=== PATIENT | female | born 1960 | race Hispanic/Latino ===

== ENCOUNTER 2020-12-31 14:16 | Emergency (ER) | payer MEDICAID, SELFPAY ==
[2020-12-31 14:24] VITALS: BP 108/57; PULSE 102; RESP 24; TEMP 37.1; O2SAT 99
--- NOTE | 2020-12-31 14:42 | ED_ITS ---
HPI - Abdominal Pain General Chief Complaint: Abdominal Pain Stated Complaint: flank/abd pain Source: patient and RN notes reviewed Limitations: no limitations History of Present Illness HPI narrative: The marshallese- speaking [place]ander patient, who is a non- smoker/nondrinker, presents with right-sided abdominal pain. Patient indicates through her Greenlandic-speaking family member , a1 day worsening of a weeklong history of epigastric discomfort that is right-sided and somewhat radiates to the back. No fever, actual vomiting/diarrhea/dehydration, frequency/dysuria/hematuria. No prior surgeries/scars, and she reportedly has a history of gallstones. Patient and family advised and agrees to go to higher-level care facility to higher level testing , because for early diagnosis of serious problems [cholecystitis, atypical appendicitis, pyelonephritis etc], testing not available here. Review of Systems Review of Systems: Narrative: General/Constitutional: No weight loss,fever Eyes: N0: Redness,discharge Ears/Nose/Throat: No: Epistaxis,ear discharge Respiratory: Denies: Hemoptysis Gastrointestinal: No Vomiting, Bleeding-rectal PMFSH Comments At time of signature, agree with nursing past medical, surgical, social and family history. There is no relevant family history pertinent to the presenting complaint Exam Narrative: Exam Narrative: General Appearance: Obese, mild distress EYE: PERRLA, Conjunctiva clear Ears: External ear normal Nose: Normal nose Mouth/Throat: Normal appearing, Normal lips Neck: Supple Respiratory: Airway patent, No respiratory distress Cardiovascular: RRR Abdomen: Soft, RUQ tender, No massess, No organomegaly (no rebound/ surgical signs), Musculoskeletal: Full ROM Skin: Warm, Dry Neurological: A&O x3, CN II-X intact Psychiatric: Normal mood, Normal affect Course Vital Signs Vital signs: Vital Signs Temperature 98.8 F 12/31/20 14:24 Pulse Rate 102 H 12/31/20 14:24 Respiratory Rate 24 H 12/31/20 14:24 Blood Pressure 108/57 L 12/31/20 14:24 Pulse Oximetry 99 12/31/20 14:24 Temperature 98.8 F 12/31/20 14:24 Pulse Rate 102 H 12/31/20 14:24 Respiratory Rate 24 H 12/31/20 14:24 Blood Pressure 108/57 L 12/31/20 14:24 Pulse Oximetry 99 12/31/20 14:24 Discharge Plan Discharge Clinical Impression: Right upper quadrant abdominal pain Patient Disposition: Acute Care Hospital Additional Instructions: As discussed go to hospital without fail who have been called Follow-up/Referrals: PHYSICIAN,WRAPPER DIPPER [Primary Care Provider] -
== END 2020-12-31 14:51 | disposition short-term general hospital (02) ==
PROVIDERS: Emergency Provider Emergency Medicine
DX: R10.11 Right upper quadrant pain (principal); I10 Essential (primary) hypertension
CPT/HCPCS: 99212; G0463

== ENCOUNTER 2020-12-31 15:04 | Observation (INO) | payer MEDICAID, SELFPAY ==
--- NOTE | ~2020-12-31 | CT_ITS ---
EXAMINATION: CT abdomen pelvis w con DATE: 12/31/2020 16:29 INDICATION: Right upper quadrant abdominal pain. TECHNIQUE: Computed tomography (CT) of the abdomen and pelvis was performed with 100 mL Omnipaque 350 intravenous contrast. Automated exposure control and iterative reconstruction technique were employe d. The dose-length product was 489.69 mGy-cm. COMPARISON: None. FINDINGS: The visualized portions of the lung bases demonstrate mild atelectasis. No pleural effusion . The heart size is normal. No pericardial effusion. There is a mass in common hepatic duct that exte nds in the intrahepatic biliary ducts causing severe intrahepatic biliary duct dilatation. The mass m easures up to 13.3 x 3.4 cm. There are gallstones in the gallbladder, which is distended. Gallbladder wall thickening is noted. The common bile duct is dilated to 11 mm. The spleen, pancreas, and adrena l glands are normal. There are cysts in the kidneys measuring up to 15 mm on the right. The left aida uterine veins and left ovarian vein are enlarged, consistent with pelvic venous insufficiency. There are no dilated loops of bowel. The appendix is normal. There are no pathologically enlarged lymph nod es. There is no free intraperitoneal fluid. There is mild thoracic spondylosis. IMPRESSION: 1. Large mass distending the common hepatic duct and intrahepatic bile ducts, likely cholangiocarcino ma. 2. Dilated common bile duct. No visible stone or mass in the distal common bile duct. Consider ERCP. 3. Distended gallbladder with cholelithiasis and gallbladder wall thickening. Given the other finding s, these findings are indeterminate for acute cholecystitis due to cystic duct obstruction. Consider hepatobiliary scintigraphy. Reviewed, dictated and finalized at location A. IMPRESSION: 1. Large mass distending the common hepatic duct and intrahepatic bile ducts, l ikely cholangiocarcinoma. 2. Dilated common bile duct. No visible stone or mass in the distal common bile duct. Consider ERCP. 3. Distended gallbladder with cholelithiasis and gallbladder wall thickening. G iven the other findings, these findings are indeterminate for acute cholecystit is due to cystic duct obstruction. Consider hepatobiliary scintigraphy.
--- NOTE | 2020-12-31 15:26 | ED.ABDPAIN ---
HPI - Abdominal Pain General Chief Complaint: Abdominal Pain Stated Complaint: ABD/Back Pain Time Seen by Provider: 12/31/20 15:07 Source: patient, family and RN notes reviewed Mode of arrival: ambulatory Limitations: no limitations History of Present Illness HPI narrative: Patient is 60 years old female does not speak Kittitian, brought to the emergency room by her daughter who speaks broken Kittitian complaining of upper abdominal pain radiating to the right mid back started last night. Patient reported having similar symptoms with a diagnosis of cholelithiasis, was planned to have a surgery back on home but did not. Patient denies any aggravating or relieving factors. The pain is constant. Associated with chills. Patient denies any nausea, vomiting, diarrhea, constipation, urinary symptoms, vaginal bleeding or discharge. Patient denied any history of COVID-19 infection or COVID-19 vaccination. Patient is from [place]. History of hypertension, does not take blood thinner, does not smoke or drink or uses drugs. Patient also denies any history of abdominal surgery. Related Data Allergies Allergy/AdvReac Type Severity Reaction Status Date / Time Penicillins Allergy Unknown Verified 12/31/20 16:08 Review of Systems Review of Systems: Narrative: CONSTITUTIONAL: Denies fever, chills, or sweats. EYES: Denies visual changes, redness, or discharge. ENT: Denies rhinorrhea, congestion, sore throat, or otalgia. CARDIOVASCULAR: Denies chest pain, palpitations, or edema. RESPIRATORY: Denies cough or dyspnea. GASTROINTESTINAL: Denies abdominal pain, nausea, vomiting, or diarrhea. GENITOURINARY: Denies dysuria or hematuria. SKIN: Denies rash or itching. MUSCULOSKELETAL: Denies back pain, joint pain, or myalgia. NEUROLOGIC: Denies headache, numbness, or weakness. PSYCHIATRIC: Denies anxiety or depression. Exam Narrative: Exam Narrative: General appearance: Well-developed, well-nourished Skin: Normal color Head: Normocephalic, nontraumatic Eyes: Clear conjunctiva ENT: Oropharynx normal, ears normal, nose normal Neck: Supple, nontender Chest and respiratory: Airway patent, no respiratory distress, no accessory muscle use Heart: Regular rate/rhythm Abdomen: Diffuse tenderness upper abdomen mainly right upper quadrant and epigastric area, quiet bowel sounds Vascular: Normal peripheral pulses, normal capillary refill. Musculoskeletal: Normal range of motion, nontender back Neurologic: Alert and oriented ?3, [employer] ) is normal as tested, no gross motor deficit Course Course Emergency Course: Stable Reevaluation(s) Reevaluation #1: Patient got accepted to be transferred to [facility], the bed will be available tomorrow. Patient will be admitted to our hospital for observation. Discussed with Date: 12/31/20 Time: 21:22 Consultations Consultation #1: Bello jacobs, Consult Dr. Cantor in a.m. for ERCP Date: 12/31/20 Time: 17:41 Consultation #2: Dr. Reed [facility] Date: 12/31/20 Time: 17:46 Consultation #3: DR CARNEY/net developer programmer at [facility] who accepted patient to be transferred to hospitalist Date: 12/31/20 Time: 18:46 Additional Consultation(s): DR VIVAS/hospitalist at [facility] who accepted patient transfer to medical floor Vital Signs Vital signs: Vital Signs Temperature 36.8 C 12/31/20 15:31 Pulse Rate 82 12/31/20 15:31 Respiratory Rate 20 12/31/20 15:31 Pulse Oximetry 98 12/31/20 15:31 Temperature 36.8 C 12/31/20 15:31 Pulse Rate 86 12/31/20 19:22 Respiratory Rate 14 12/31/20 19:22 Blood Pressure 109/69 12/31/20 19:22 Pulse Oximetry 93
[2020-12-31 15:31] VITALS: PULSE 82; RESP 20; TEMP 36.8; O2SAT 98
[2020-12-31 15:49] LABS: Hematocrit 39.5 % (37.0-47.0); Hemoglobin 12.9 g/dL (12.0-15.0); Mean Corpuscular HGB Conc 32.7 g/dl (32-36); Mean Corpuscular Volume 82.6 fl (80-100); Mean Platelet Volume 9.9 fl (7.4-10.4); Platelet Count Result 336 k/mm3 (150-375); Red Blood Count 4.78 M/mm3 (4.2-5.4); Red Cell Distribution Width 13.1 % (11.5-14.5); White Blood Count 14.9 K/mm3 (4.5-10.0)
[2020-12-31] MEDS: Please add drug allergy info to patient profile. 1 EACH XX (16:09)
[2020-12-31] MEDS: ONDANSETRON INJ 4 MG/2 ML VIAL IV PUSH (16:10)
[2020-12-31] MEDS: SODIUM CHLORIDE 0.9% IV 1,000 ML 999 ML IV CONT (16:11)
[2020-12-31] MEDS: HYDROmorphone HCL INJ (*CRX) 1 MG/ML SYR 0.5 MG IV PUSH (16:11)
[2020-12-31 16:19] LABS: Atypical Lymphocytes Present; Band Neutrophils Percent 16 % (0-6); Lymphocytes Absolute Manual 1.19 K/mm3 (1.1-4.5); Monocytes Absolute Manual 1.19 K/mm3 (0.1-0.90); Monocytes Percent Manual 8 % (3-9); Neutrophils Absolute Manual 12.51 K/mm3 (1.7-7.2); Neutrophils Percent Manual 68 % (46-73); Platelet Estimate Adequate (Adequate); Total Cells Counted 100
[2020-12-31 16:21] LABS: Add Urine Microscopic? YES; Appearance Urine Cloudy (Clear); Bacteria Urine Trace /hpf; Bilirubin Urine 1+ (Negative); Blood Urine Negative (Negative); Color Urine Amber (Yellow); Glucose Urine UA Negative (Negative); Ketones Urine Negative (Negative); Leukocyte Esterase Ur Negative LEU/UL (Negative); Nitrate Urine Negative (Negative); Protein Urine 1+ mg/dL (Negative); RBC Urine 0-2 /hpf (0-2); Specific Grav Ur 1.014 (1.001-1.035); Squamous Epithelial Cell Urine Rare /hpf (Few); WBC Urine 0-3 /hpf
[2020-12-31 16:23] LABS: Alanine Aminotransferase 162 U/L (4-35); Albumin Level 4.3 g/dL (3.5-5.1); Alkaline Phosphatase 476 U/L (38-126); Anion Gap 8 mmol/L (8-16); Aspartate Amino Transferase 164 U/L (14-36); Bilirubin,Total 4.5 mg/dL (0.2-1.3); Blood Urea Nitrogen 19 mg/dL (7-17); Calcium 9.9 mg/dL (8.4-10.2); Carbon Dioxide 28 mmol/L (22-30); Chloride 101 mmol/L (98-107); Estimated CRCL calculation 58 ml/min; Estimated Glomerular Filt Rate > 60; Glucose 172 mg/dL (65-105); Sodium 137 mmol/L (137-145)
[2020-12-31 16:51] LABS: Lipase 19429 U/L (23-300)
[2020-12-31 19:22] VITALS: BP 109/69; PULSE 86; RESP 14; O2SAT 93
[2020-12-31 20:20] LABS: Estimated CRCL calculation 73 ml/min; Estimated Glomerular Filt Rate > 60
[2020-12-31 21:48] VITALS: BP 116/59; PULSE 94; RESP 14; O2SAT 94
--- NOTE | 2020-12-31 22:45 | PM.IMHP ---
H&P: HPI History of Present Illness Date/Time: 12/31/20 22:45 Chief Complaint: abdominal pain Narrative: Patient is 60 years old female does not speak Uzbek, brought to the emergency room by family who speaks broken Uzbek. Lucio was taken via phone call to her daughter while evluating. She states she has been haaivn on and off pain in her abdomen for years but has gotten worse over the past few weeks, got really worse last nigth with upper abdominal pain radiating to her midback. thre was asociated nausea and an episode of vomiting but no fever. she does admit to having chills off and on. she is having no constipation and diarrhea. Dated back in july 2019, she was told she has gall stones and suggested surgery however she did nto follow back. evaluation in the ED showed distended gallbladder with large mass distending the common hepatic duct and intrahepatic bile ducts ,suggetive of cholangiocarcinoma. she is planned to be transfered to higher center and has been accepted there however there is no beds available and hence she is admitted until bed availability. She rpeorts that her pain is better since she came to the hosptial. Review of Systems Review of Systems: Narrative: - CONSTITUTIONAL: Denies weight loss, fever and chills. - HEENT: Denies changes in vision and hearing - RESPIRATORY: Denies SOB and cough. - CV: Denies palpitations and CP. - GI: reports abdominal pain, nausea, vomiting and no diarrhea. - : Denies dysuria and urinary frequency. - MSK: Denies myalgia and joint pain. - SKIN: Denies rash and pruritus. - NEUROLOGICAL: Denies headache and syncope. - PSYCHIATRIC: Denies recent changes in mood. Denies anxiety and depression. All systems reviewed & are unremarkable except as noted in HPI and below Constitutional: Constitutional: Reports fatigue and Reports weakness Endocrine: Endocrine: Reports fatigue Meds Home Medications and Allergies Allergies Allergy/AdvReac Type Severity Reaction Status Date / Time Penicillins Allergy Unknown Verified 12/31/20 16:08 Vital Signs Vital Signs - 24 hr 12/31/20 15:31 12/31/20 19:22 12/31/20 21:48 Temperature 98.3 F Pulse Rate 82 86 94 Respiratory Rate 20 14 14 Blood Pressure 109/69 116/59 L Pulse Oximetry 98 93 94 Exam Narrative: Exam Narrative: GENERAL: The patient is well developed, not in acute distress HEENT: Nonicteric sclerae, PERRLA, EOMI. Oropharynx clear. Moist mucous membranes. Conjunctivae appear well perfused. CHEST: Chest wall is nontender. HEART: Regular rate and rhythm without murmur, rubs, or gallops LUNGS: Clear to auscultation bilaterally. no respiratory distress ABDOMEN: Soft, positive bowel sounds, tender right upper quadrant, no guarding or rigidity, no organomegaly. SKIN: No rash, no excessive bruising, petechiae, or purpura. NEUROLOGIC: Cranial nerves II-XII intact, alert and oriented x 3, no gross motor deficits EXTREMITIES: no edema, cyanosis or clubbing H&P: Results Labs Labs: Short CBC 12/31/20 Range/Units 15:42 WBC 14.9 H (4.5-10.0) K/mm3 Hgb 12.9 (12.0-15.0) g/dL Hct 39.5 (37.0-47.0) % Plt Count 336 (150-375) k/mm3 BMP 12/31/20 12/31/20 16:06 16:23 Sodium 137 Potassium 4.0 Chloride 101 Carbon Dioxide 28 BUN 19 H Creatinine 0.90 0.70 Glucose 172 H Calcium 9.9 Liver Function 12/31/20 Range/Units 16:06 Total Bilirubin 4.5 H (0.2-1.3) mg/dL AST 164 H (14-36) U/L ALT 162 H (4-35) U/L Alkaline Phosphatase 476 H (38-126) U/L Albumin 4.3 (3.5-5.1) g/dL Urine 12/31/20 Range/Units 16:06 Urine Color Annmarie (Yellow) Urine Appearance Cloudy H (Clear) Urine pH 6.0 (5.0-9.0) Ur Specific [place] 1.014 (1.001-1.035) Urine Protein 1+ H (Negative) mg/dL Urine Glucose (UA) Negative (Negative) mg/dL Assessment and Plan Assessment and plan (1) Right upper quadrant abdominal pain: Code(s
--- NOTE | 2020-12-31 22:55 | ADMGEN ---
This patient, Laly Walton, was admitted to 2 Medical Room 241-01. Patient/family oriented to hospital policies and general routines including ID bracelet, bed and alarms, visiting hours, pain management, procedures, bathroom and other care routines, personal items, smoking policy, room service/diet, and visiting hours. Information on how to activate the Rapid Response Team has been discussed. Patient/Family are encouraged to report perceived risks to care and to ask questions if they do not understand what they are told or what they should do.
[2020-12-31 23:16] VITALS: BP 113/58; PULSE 98; RESP 16; TEMP 36.1; O2SAT 97; BMI 39.2
[2020-12-31] MEDS: DEXTROSE 5%/0.9% SOD CHL 1,000 ML 125 ML IV CONT (23:21)
--- NOTE | 2020-12-31 23:53 | PC.NURSE ---
Patient stated she doesn't know what medications shes taking. She says its a blood pressure medication. I called daughter Kinga Argueta she says she doesn't know the name of the medication and thats its from [facility] and she has no doctor here.
[2021-01-01] MEDS: HYDROmorphone HCL INJ (*CRX) 1 MG/ML SYR 0.5 MG IV PUSH (01:26)
[2021-01-01 05:45] LABS: Basophils Absolute Auto 0.1 K/mm3 (0.0-0.1); Basophils Percent Auto 0.5 % (0.2-1.2); Eosinophils Percent Auto 0.2 % (0-4.4); Hematocrit 33.5 % (37.0-47.0); Hemoglobin 10.7 g/dL (12.0-15.0); Immature Granulocyte Absolute 0.04 K/mm3 (0.00-0.031); Immature Granulocyte Percent A 0.4 % (0-0.5); Lymphocytes Absolute Auto 1.21 K/mm3 (0.9-3.2); Lymphocytes Percent Auto 12.2 % (18.3-44.2); Mean Corpuscular HGB Conc 31.9 g/dl (32-36); Mean Corpuscular Hemoglobin 27.2 pg (26-34); Mean Platelet Volume 10.7 fl (7.4-10.4); Monocytes Absolute Auto 0.5 K/mm3 (0.1-0.6); Monocytes Percent Auto 4.5 % (2.6-8.5); Neutrophils Absolute Auto 8.2 K/mm3 (1.3-6.7); Neutrophils Percent Auto 82.2 % (45.5-73.1); Platelet Count Result 280 k/mm3 (150-375); Red Blood Count 3.94 M/mm3 (4.2-5.4); Red Cell Distribution Width 13.2 % (11.5-14.5); White Blood Count 9.9 K/mm3 (4.5-10.0)
[2021-01-01 05:54] LABS: Alanine Aminotransferase 120 U/L (4-35); Albumin Level 3.4 g/dL (3.5-5.1); Alkaline Phosphatase 334 U/L (38-126); Anion Gap 7 mmol/L (8-16); Aspartate Amino Transferase 100 U/L (14-36); Bilirubin,Total 3.8 mg/dL (0.2-1.3); Blood Urea Nitrogen 18 mg/dL (7-17); Calcium 8.9 mg/dL (8.4-10.2); Carbon Dioxide 25 mmol/L (22-30); Chloride 108 mmol/L (98-107); Estimated CRCL calculation 73 ml/min; Estimated Glomerular Filt Rate > 60; Glucose 170 mg/dL (65-105); Potassium 3.5 mmol/L (3.4-5.0); Sodium 140 mmol/L (137-145)
[2021-01-01 06:00] VITALS: BP 111/55; PULSE 93; RESP 18; TEMP 35.9; O2SAT 96
[2021-01-01 07:52] LABS: Lipase 6362 U/L (23-300)
[2021-01-01] MEDS: DEXTROSE 5%/0.9% SOD CHL 1,000 ML 125 ML IV CONT ×2 (07:52→17:13)
[2021-01-01 08:07] VITALS: RESP 18; O2SAT 97
--- NOTE | 2021-01-01 12:27 | PM.IMPN ---
Progress Note: A&P Assessment and Plan (1) Right upper quadrant abdominal pain: Code(s): R10.11 - Right upper quadrant pain Status: Acute Assessment and Plan: CT abdomen/pelvis with large mass distending the common hepatic duct and intrahepatic bile ducts likely cholangiocarcinoma, dilated common bile duct and distended gallbladder with cholelithiasis. General surgery consulted from the emergency room with recommendation for referral to tertiary center. [facility] buyer intern and hospitalist contacted last night and did accept patient in transfer by but bed not available with anticipation of bed availability today. Will continue NPO status. IV fluids and IV Zosyn while awaiting transfer. Continue IV Dilaudid acetaminophen for pain. Also continue IV Zofran. 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 Plan to transfer to tertiary center. Will continue treatment as noted above. (3) Obstructive jaundice: Code(s): K83.1 - Obstruction of bile duct Status: Acute Assessment and Plan: Result of masses seen on CT scan. LFTs remain elevated. Await transfer to [facility]. (4) Gall stones: Code(s): K80.20 - Calculus of gallbladder without cholecystitis without obstruction Status: Acute Assessment and Plan: Also seen on CT scan. Awaiting transfer to tertiary center as noted. Continue treatment as noted above. (5) DVT prophylaxis: Code(s): Z29.9 - Encounter for prophylactic measures, unspecified Status: Acute Assessment and Plan: SCDs. Time Spent With Patient Time with patient: 25 - 35 minutes Subjective Date/time seen: 01/01/21 12:27 Interval history: Date of Service: 01/01/2021. Admitted with abdominal pain, jaundice and concern for cholangiocarcinoma. Patient interviewed with help of credit collections clerk as well as daughter. Patient reports abdominal discomfort which causes shortness of breath. No nausea or vomiting. No chest pain or pressure. No headache or dizziness. No urinary symptoms. Review of Systems Constitutional: Constitutional: Denies chills and Denies fever(s) ENT: Denies sore throat Cardiovascular: Cardiovascular: Denies chest pain Respiratory: Respiratory: Reports dyspnea Gastrointestinal: Gastrointestinal: Reports abdominal pain, Denies nausea and Denies vomiting Genitourinary: Genitourinary: Reports no additional female genitourinary complaints Musculoskeletal: Musculoskeletal: Reports no additional musculoskeletal complaints Integumentary/Breasts: Comments: Jaundice Neurologic: Denies dizziness and Denies headache(s) Psychiatric: Psychiatric: Reports no additional psychiatric complaints Exam Narrative: Exam Narrative: Awake and alert. Const: General: no acute distress HENMT: Mouth: Yes moist mucous membranes Neck: Neck: supple and no lymphadenopathy noted Resp: Effort & Inspection: normal respiratory effort Auscultation: clear to auscultation bilaterally, no rales and no wheezes Cardio: Rate: regular rate Rhythm: regular rhythm GI: GI Palp: Yes Soft to palpation, Yes Tenderness to palpation present (GI) (RUQ), No Guarding due to palpation present (GI) and No Rebound tenderness present Auscultation: normal bowel sounds : Other: Not examined Skin: General skin exam: jaundice Neuro: General: patient oriented x3 Other: Moving all extremities. Speech clear. Extrem: General: no edema Psych: Other: Appropriate mood and affect. Objective Data Vital Signs Vital Signs: Vital Signs - 24 hr 12/31/20 15:31 12/31/20 19:22 12/31/20 21:48 Temperature 98.3 F Pulse Rate 82 86 94 Respiratory Rate 20 14 14 Blood Pressure 109/69 116/59 L Pulse Oximetry 98 93 94 12/31/20 23:16 01/01/21 06:00 01/01/21 08:07 Temperature 96.9 F L 96.7 F L Pu
[2021-01-01 14:00] VITALS: BP 111/62; PULSE 92; RESP 20; TEMP 36.5; O2SAT 96
--- NOTE | 2021-01-01 18:03 | PM.TDS ---
Transfer Discharge Sum: Prov Provider Date of admission: 12/31/20 21:15 Primary care physician: CLERICAL SUPERVISOR PHYSICIAN Admitting clinician: Greyson Alcazar MD Attending physician on admission: Greyson Alcazar Attending physician on discharge: Starr Trujillo Discharging clinician: Starr Trujillo Anticipated date of transfer: 01/01/21 Receiving physician/facility: [facility] DS: Admitting Diagnosis Admitting Diagnosis Admitting Diagnosis: RUQ pain/cholangiocarcinoma DS: Discharge Diagnosis Discharge Diagnosis (1) Right upper quadrant abdominal pain: Code(s): R10.11 - Right upper quadrant pain Status: Acute (2) 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 Status: Acute (3) Obstructive jaundice: Code(s): K83.1 - Obstruction of bile duct Status: Acute (4) Gall stones: Code(s): K80.20 - Calculus of gallbladder without cholecystitis without obstruction Status: Acute Transfer Discharge Sum: Med Medications Active and Home Medications: Home Medications Unable to Obtain Home Medications 01/01/21 [History Confirmed 01/01/21] Active Medications Hydromorphone HCl (Hydromorphone Hcl Inj (*Crx) 1 Mg/Ml Syr) 0.5 mg IV PUSH Q4H PRN PRN Reason: Pain Rated 7-10 Last Admin: 01/01/21 01:26 Dose: 0.5 mg Documented by: Acetaminophen (Ofirmev 1,000 Mg Ivpb) 1,000 mg in 100 mls @ 400 mls/hr IVPB Q6H PRN PRN Reason: Mild Pain (1-3) or Fever Stop: 01/01/21 21:16 Dextrose/Sodium Chloride (Dextrose 5% Sodium Chloride 0.9%) 1,000 mls @ 125 mls/hr IV CONT .Q8H GOLD Last Infusion: 01/01/21 17:45 Dose: 125 mls/hr Documented by: Piperacillin/Tazobactam/Dextrose (Zosyn 3.375 Gm/D5w 50ml Pm) 3.375 gm in 50 mls @ 100 mls/hr IVPB Q6HR GOLD Last Infusion: 01/01/21 17:44 Dose: Infused Documented by: Ondansetron HCl (Ondansetron Inj 4 Mg/2 Ml Vial) 4 mg IV PUSH Q4H PRN PRN Reason: Nausea Transfer Discharge Sum: Hosp Hospital Course Hospital course: Laly Walton is a 60 year old female to the emergency room with history of pain off and on in the abdomen for years worse in the last few weeks. Patient with RUQ pain radiating to her mid back associated with nausea and vomiting but no fever. No constipation or diarrhea. Patient with a previous history of gallstones with recommendation for surgery but did not follow through. On evaluation in the emergency room, imaging did show a large mass distending the common hepatic duct and intrahepatic bile ducts likely cholangiocarcinoma as well as dilated common bile duct and distended gallbladder with cholelithiasis. From the emergency room, [facility] was contacted for possible transfer upon recommendation of General surgery here. Patient was accepted by General list and hospitalist but no bed available. As a result, patient was placed in observation while awaiting bed placement. Patient was admitted and started on IV Zosyn as well as IV fluids. She was kept NPO. Patient was given IV Dilaudid for pain as well as IV Zofran. She continued to be monitored with symptoms managed. She did have noted jaundice. Patient had no other new issues. Bed was finally available at [facility] with notification at approximately 6:00 p.m.. Patient was subsequently transferred to [facility] on January 01, 2021 for further evaluation and treatment. Time Spent with Patient Time attestation: Total time spent providing and/or coordinating transfer services: 35 minutes. Total time spent: Greater than 30 minutes Exam Narrative: Exam Narrative: Awake and alert. Const: General: no acute distress Orientation/consciousness: patient oriented x3 HENMT: Mouth: Yes moist mucous membranes Neck: Neck: supple and no lymphadenopathy noted Resp: Effort & Inspection: normal respiratory effort Auscultation: clear to auscultation bilaterally, no rales and n
[2021-01-01 20:26] VITALS: BP 131/57; PULSE 99; RESP 16; TEMP 36.8; O2SAT 98
[2021-01-01 20:39] VITALS: BP 131/57; PULSE 99; RESP 16; TEMP 36.8; O2SAT 98
== END 2021-01-01 20:45 | disposition short-term general hospital (02) ==
LOC: ANHED 21:24 → ANH2MED 01-01 17:55
PROVIDERS: Admitting Provider Internal Medicine; Emergency Provider Emergency Medicine; Visit Provider Internal Medicine
DX: K83.8 Other specified diseases of biliary tract (principal); R10.11 Right upper quadrant pain; R19.09 Other intra-abdominal and pelvic swelling, mass and lump; K83.1 Obstruction of bile duct
CPT/HCPCS: 36415; 74177; 80053; 81001; 83690; 85025; 96361; 96365; 96366; 96374; 96375; 99285; G0378; G0379; J1170; J2405; J2543; J7030; J7042; Q9967

== ENCOUNTER 2021-01-21 22:29 | Observation (INO) | payer MEDICAID, SELFPAY ==
--- NOTE | ~2021-01-21 | CT_ITS ---
EXAMINATION: CT abdomen pelvis w con DATE: 01/22/2021 01:54 INDICATION: Right upper quadrant abdominal pain. TECHNIQUE: Computed tomography (CT) of the abdomen and pelvis was performed with 100 mL Omnipaque 350 intravenous contrast. Automated exposure control and iterative reconstruction technique were employe d. The dose-length product was 384.77 mGy-cm. COMPARISON: CT abdomen and pelvis 12/31/2020 FINDINGS: The visualized portions of the lung bases demonstrate mild atelectasis. No pleural effusion . The heart size is normal. No pericardial effusion. There is a large mass involving the intrahepatic and extrahepatic biliary ducts with enlargement of the ducts. There is an internal biliary stent in expected position. The gallbladder is distended and contains gallstones. The spleen, pancreas, adrena l glands are normal. There is a 1.5 cm mass in the right kidney measuring soft tissue attenuation. Th ere is a 5 mm cyst in left kidney. The left ovarian vein and left periuterine veins are prominent, co nsistent with pelvic venous insufficiency. There are fibroids in the uterus. There are no dilated loo ps of bowel. The appendix is normal. There is periportal and gastrohepatic lymphadenopathy. There is mild thoracic spondylosis. IMPRESSION: 1. Large mass involving the intrahepatic and extrahepatic bile ducts with enlargement of the ducts, l ikely cholangiocarcinoma. Internal biliary stent in expected position. 2. Distended gallbladder with gallstones again seen. Infection cannot be excluded. 3. 1.5 cm right kidney mass, which may be a hemorrhagic cyst or less likely a neoplasm. Abdomen CT or MRI without and with contrast is recommended. 4. Periportal and gastrohepatic lymphadenopathy. Reviewed, dictated and finalized at location A. IMPRESSION: 1. Large mass involving the intrahepatic and extrahepatic bile ducts with enlar gement of the ducts, likely cholangiocarcinoma. Internal biliary stent in expec kimmy position. 2. Distended gallbladder with gallstones again seen. Infection cannot be exclud ed. 3. 1.5 cm right kidney mass, which may be a hemorrhagic cyst or less likely a n eoplasm. Abdomen CT or MRI without and with contrast is recommended. 4. Periportal and gastrohepatic lymphadenopathy.
[2021-01-21 22:48] VITALS: BP 118/50; PULSE 100; RESP 18; TEMP 36.9; O2SAT 100
--- NOTE | 2021-01-21 23:04 | PC.NURSE ---
attempted to get blood x1, no success. pt sent to [facility] w/ urine cup.
--- NOTE | 2021-01-21 23:39 | PC.NURSE ---
pt daughter manuela is leaving at this time but wants updates ([phone]) she states if she doesnt answer to call other daughter ivis ([phone])
[2021-01-21 23:54] LABS: Add Urine Microscopic? YES; Appearance Urine Clear (Clear); Bacteria Urine Trace /hpf; Bilirubin Urine 2+ (Negative); Blood Urine Negative (Negative); Color Urine Amber (Yellow); Glucose Urine UA Negative (Negative); Ketones Urine Negative (Negative); Leukocyte Esterase Ur Trace LEU/UL (Negative); Mucus Urine Rare /lpf; Nitrate Urine Negative (Negative); Protein Urine Negative (Negative); RBC Urine 0-2 /hpf (0-2); Specific Grav Ur 1.017 (1.001-1.035); Squamous Epithelial Cell Urine Few /hpf (Few); Transitional Epi Cells Urine Rare /hpf (None Seen)
[2021-01-22] VITALS (21 sets, daily range): BP systolic 84–131; BP diastolic 48–79; PULSE 71–95; RESP 15–24; TEMP 36.6; O2SAT 96–98
[2021-01-22 00:28] LABS: Basophils Absolute Auto 0.1 K/mm3 (0.0-0.1); Basophils Percent Auto 0.5 % (0.2-1.2); Eosinophils Absolute Auto 0.1 K/mm3 (0-0.3); Eosinophils Percent Auto 0.7 % (0-4.4); Hematocrit 32.6 % (37.0-47.0); Hemoglobin 10.5 g/dL (12.0-15.0); Immature Granulocyte Absolute 0.09 K/mm3 (0.00-0.031); Immature Granulocyte Percent A 0.8 % (0-0.5); Lymphocytes Absolute Auto 1.23 K/mm3 (0.9-3.2); Lymphocytes Percent Auto 10.8 % (18.3-44.2); Mean Corpuscular HGB Conc 32.2 g/dl (32-36); Mean Corpuscular Hemoglobin 27.1 pg (26-34); Mean Corpuscular Volume 84.2 fl (80-100); Mean Platelet Volume 10.5 fl (7.4-10.4); Monocytes Absolute Auto 0.7 K/mm3 (0.1-0.6); Monocytes Percent Auto 6.3 % (2.6-8.5); Neutrophils Absolute Auto 9.2 K/mm3 (1.3-6.7); Neutrophils Percent Auto 80.9 % (45.5-73.1); Platelet Count Result 339 k/mm3 (150-375); Red Blood Count 3.87 M/mm3 (4.2-5.4); Red Cell Distribution Width 14.6 % (11.5-14.5); White Blood Count 11.3 K/mm3 (4.5-10.0)
[2021-01-22 00:38] LABS: Alanine Aminotransferase 173 U/L (4-35); Alkaline Phosphatase 672 U/L (38-126); Anion Gap 13 mmol/L (8-16); Aspartate Amino Transferase 144 U/L (14-36); Bilirubin,Total 5.6 mg/dL (0.2-1.3); Blood Urea Nitrogen 23 mg/dL (7-17); Calcium 10.3 mg/dL (8.4-10.2); Carbon Dioxide 23 mmol/L (22-30); Chloride 103 mmol/L (98-107); Estimated Glomerular Filt Rate > 60; Glucose 173 mg/dL (65-105); Lipase 645 U/L (23-300); Potassium 3.7 mmol/L (3.4-5.0); Sodium 139 mmol/L (137-145)
[2021-01-22] MEDS: MORPHINE SULFATE (*CRX) 4 MG/ML INJ IV PUSH (01:57)
--- NOTE | 2021-01-22 03:19 | ED.ABDPAIN ---
HPI - Abdominal Pain General Chief Complaint: Abdominal Pain <Kel Olivera MD - Last Filed: 01/23/21 01:44> Stated Complaint: abdominal pain <Kel Olivera MD - Last Filed: 01/23/21 01:44> Time Seen by Provider: 01/22/21 00:22 <Kel Olivera MD - Last Filed: 01/23/21 01:44> History of Present Illness HPI narrative: Patient is a 60-year-old female with history of liver mass who presents ER with right upper quadrant abdominal pain. Sudden onset this evening according to patient. History obtained through interpretive services. Patient was discharged from [facility] on 01/08 after having a biliary stent placed. This was done through ERCP. She is scheduled to follow-up on January 24 to have a repeat ERCP with possible lithotripsy of the stones. Patient is having no nausea or vomiting. Denies pain with eating. Had been having no issues until today. Patient is unable to say when she began to become jaundiced. Denies fever/chills/sweats at this time. Patient reports she has been nervous about her diagnosis. She is unsure what the treatment plan has or whether she is going to receive chemo. <Kel Olivera MD - Last Filed: 01/23/21 01:44> Related Data Home Medications: Home Medications Medication Instructions Recorded Confirmed Unable to Obtain Home Medications 01/01/21 01/01/21 <Kel Olivera MD - Last Filed: 01/23/21 01:44> Allergies/Adverse Reactions: Allergies Allergy/AdvReac Type Severity Reaction Status Date / Time Penicillins Allergy Hives Verified 01/22/21 19:15 <Kel Olivera MD - Last Filed: 01/23/21 01:44> Review of Systems Review of Systems: All systems reviewed & are unremarkable except as noted in HPI and below <Kel Olivera MD - Last Filed: 01/23/21 01:44> Constitutional: Constitutional: Denies chills, Denies fever(s) and Denies weakness <Kel Olivera MD - Last Filed: 01/23/21 01:44> ENT: Denies nasal congestion and Denies sore throat <Kel Olivera MD - Last Filed: 01/23/21 01:44> Cardiovascular: Cardiovascular: Denies chest pain, Denies rapid heart rate and Denies radiating jaw, neck or arm pain <Kel Olivera MD - Last Filed: 01/23/21 01:44> Respiratory: Respiratory: Denies cough and Denies dyspnea <Kel Olivera MD - Last Filed: 01/23/21 01:44> Gastrointestinal: Gastrointestinal: Reports abdominal pain, Denies diarrhea, Reports nausea and Denies vomiting <Kel Olivera MD - Last Filed: 01/23/21 01:44> [facility] Past Medical History Medical History: Medical History (Updated 01/22/21 @ 06:11 by Kel Olivera MD) Cholangiocarcinoma Gall stones Obstructive jaundice <Kel Olivera MD - Last Filed: 01/23/21 01:44> Surgical History Surgical History: Surgical History (Updated 01/22/21 @ 06:09 by Kel Olivera MD) History of biliary duct stent placement History of ERCP <Kel Olivera MD - Last Filed: 01/23/21 01:44> Family History Family History: Family History (Updated 12/31/20 @ 23:13 by Rosa Lam RN) Mother Parkinson disease <Kel Olivera MD - Last Filed: 01/23/21 01:44> Social History Social History: Social History Smoking status: Never smoker Alcohol intake: never Substance use: never Spiritual care concerns: No <Kel Olivera MD - Last Filed: 01/23/21 01:44> Exam Narrative: Exam Narrative: GENERAL: Ill-appearing, well-nourished, and in no acute distress. HEAD: Normocephalic, atraumatic. Eyes: PERRL, EOMI. Scleral icterus. ENT: Mucous membranes moist. CHEST: Clear to auscultation. No respiratory distress. HEART: Regular rate and rhythm. Normal peripheral pulses. ABDOMEN: Soft, tender palpation right upper quadrant and epigastrium, nondistended, normal active bowel sounds. EXTREMITIES: Normal range of motion. No edema. SKIN: Warm, dry, chris
[2021-01-22] MEDS: SODIUM CHLORIDE 0.9% IV 1,000 ML 999 ML IV CONT ×3 (04:11→06:09)
--- NOTE | 2021-01-22 05:53 | PC.NURSE ---
Lab results and decision to transfer patient to [facility] explained to patient by Dr Olivera using the translation line --Juan #[id number]. Patient voiced understanding and denied any questions
--- NOTE | 2021-01-22 07:10 | PC.NURSE ---
Assumed care of pt at this time, lights dimmed, pt is alert on stretcher, on tele monitor, VSS.
--- NOTE | 2021-01-22 13:05 | PC.NURSE ---
bed status check-no beds available
--- NOTE | 2021-01-22 16:22 | PC.NURSE ---
Bed status - No Bed
[2021-01-22 23:38] LABS: Basophils Absolute Auto 0.1 K/mm3 (0.0-0.1); Basophils Percent Auto 1.1 % (0.2-1.2); Eosinophils Absolute Auto 0.2 K/mm3 (0-0.3); Eosinophils Percent Auto 3.8 % (0-4.4); Hematocrit 29.6 % (37.0-47.0); Hemoglobin 9.3 g/dL (12.0-15.0); Immature Granulocyte Absolute 0.03 K/mm3 (0.00-0.031); Immature Granulocyte Percent A 0.5 % (0-0.5); Lymphocytes Absolute Auto 1.95 K/mm3 (0.9-3.2); Lymphocytes Percent Auto 35.1 % (18.3-44.2); Mean Corpuscular HGB Conc 31.4 g/dl (32-36); Mean Corpuscular Hemoglobin 26.5 pg (26-34); Mean Corpuscular Volume 84.3 fl (80-100); Mean Platelet Volume 10.1 fl (7.4-10.4); Monocytes Absolute Auto 0.5 K/mm3 (0.1-0.6); Monocytes Percent Auto 8.6 % (2.6-8.5); Neutrophils Absolute Auto 2.8 K/mm3 (1.3-6.7); Neutrophils Percent Auto 50.9 % (45.5-73.1); Platelet Count Result 293 k/mm3 (150-375); Red Blood Count 3.51 M/mm3 (4.2-5.4); Red Cell Distribution Width 14.6 % (11.5-14.5); White Blood Count 5.6 K/mm3 (4.5-10.0)
[2021-01-23 00:20] LABS: Alanine Aminotransferase 136 U/L (4-35); Albumin Level 3.4 g/dL (3.5-5.1); Alkaline Phosphatase 525 U/L (38-126); Anion Gap 9 mmol/L (8-16); Aspartate Amino Transferase 99 U/L (14-36); Bilirubin,Total 4.9 mg/dL (0.2-1.3); Blood Urea Nitrogen 13 mg/dL (7-17); Calcium 9.3 mg/dL (8.4-10.2); Carbon Dioxide 22 mmol/L (22-30); Chloride 110 mmol/L (98-107); Estimated CRCL calculation 75 ml/min; Estimated Glomerular Filt Rate > 60; Glucose 93 mg/dL (65-105); Lipase 198 U/L (23-300); Potassium 3.7 mmol/L (3.4-5.0); Sodium 141 mmol/L (137-145)
[2021-01-23 01:29] VITALS: BP 122/71; PULSE 80; RESP 18; O2SAT 97
[2021-01-23 02:30] VITALS: BP 137/65; PULSE 82; RESP 20; TEMP 36.3; O2SAT 99
[2021-01-23 02:35] VITALS: BMI 48.5
[2021-01-23] MEDS: SODIUM CHLORIDE 0.9% IV 1,000 ML 125 ML IV CONT ×2 (03:19→11:19)
[2021-01-23 06:00] VITALS: BP 118/62; PULSE 84; RESP 20; TEMP 36.1; O2SAT 98
--- NOTE | 2021-01-23 06:27 | PM.IMHP ---
H&P: HPI History of Present Illness Date/Time: 01/23/21 06:27 Chief Complaint: Upper abdominal pain Narrative: 60-year-old female with past medical history of placement due to obstructing cholangiocarcinoma in mid December who presented to the ER from home due to sudden recurrence of right upper quadrant pain on 01/22/2021. Patient was discharged from [facility] on 01/08/2021. At the time of her discharge from the hospital her bilirubin was down to 1.9 inter alk phos was down to 330. The patient's case was discussed with transfer services at [facility] who felt the patient would benefit from returning. Given the elevation in her bilirubin and alk-phos it was felt that her stent was likely obstructed. They recommended the patient be started back on Zosyn. The patient sat in the ER for approximately 24 hours waiting for bed placement at [facility]. ER physician contacted the hospital again and the physician felt that the patient would likely have a bed placement by mid day on the . The patient was subsequently admitted as observation at our facility awaiting transfer in the setting. The patient reports that she was feeling better until the afternoon of the . She reports that she had eaten some chicken wings and then went and laid down. An hour to later when she woke up she was having right upper quadrant abdominal pain as 7/10 in intensity. She reports that the pain was never as severe as it was the last time she was hospitalized. She did not have any associated nausea or vomiting. She denied any fevers or chills. She reported that the pain at times is sharp and is worse with palpation. She still has some scleral icterus but has not noticed any worsening of her eye color. She was just concerned it did not want to get a sick as she was last time she was hospitalized. She reports that she has been very anxious about her diagnosis and management. She actually was unable to tell me what procedures she had actually had an that information was obtained from ER records. She denies any shortness of breath, cough, congestion, or lower extremity swelling. S she reports that her bowel movements have been smaller than usual but have been relatively normal in color. She denied any hematochezia or melena. She has been feeling fatigued. History and physical was obtained through [facility] services. Review of Systems Review of Systems: Narrative: 12 systems were reviewed with pertinent positives and negatives per HPI. Except as documented in the HPI, all other systems were reviewed and are negative. [facility] Past Medical History Medical History Cholangiocarcinoma Gall stones Obstructive jaundice Surgical History Surgical History History of biliary duct stent placement History of ERCP Family History Family History Mother Parkinson disease Social History Social History Smoking status: Never smoker Alcohol intake: never Substance use: never Spiritual care concerns: No Meds Home Medications and Allergies Home Medications Medication Instructions Recorded Confirmed Type Unable to Obtain Home Medications 01/01/21 01/01/21 History Allergies Allergy/AdvReac Type Severity Reaction Status Date / Time Penicillins Allergy Hives Verified 01/22/21 19:15 Vital Signs Vital Signs - 24 hr 01/22/21 07:11 01/22/21 08:08 01/22/21 10:31 Temperature Pulse Rate 78 74 79 Respiratory Rate 16 17 21 H Blood Pressure 97/64 L 95/59 L 101/68 Pulse Oximetry 97 96 98 01/22/21 12:35 01/22/21 14:55 01/22/21 16:53 Temperature 97.8 F Pulse Rate 72 71 80 Respiratory Rate 15 16 24 H Blood Pressure 109/65 106/65 113/67 Pulse Oximetry 98 97 97 01/22/21 19:19 01/22/21 22:03 01/23/21 01:29 Temperature Pulse Rat
[2021-01-23 08:00] VITALS: BP 125/63; PULSE 84; RESP 16; TEMP 36.4; O2SAT 98
[2021-01-23 08:14] VITALS: O2SAT 98
[2021-01-23 14:00] VITALS: BP 136/66; PULSE 82; RESP 16; TEMP 36.3; O2SAT 98
--- NOTE | 2021-01-23 15:02 | PM.IMPN ---
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 Status: Acute Assessment and Plan: Patient had stent placed Labs indicate that stent is blocked Labs are trending down Labs in the am Awaiting for bed at [facility] where procedure was done Supportive care Morphine 4mg IV Q2hr PRN IV tylenol 50mg Q6 PRN Clear liquids then NPO after midnight NS at 125ml/hr Zosyn 3.375 Q6hr (2) Obstructive jaundice: Code(s): K83.1 - Obstruction of bile duct Status: Acute Assessment and Plan: Skin is yellow Liver enzymes are elevated will trend labs while patient is awaiting transfer Labs in the am (3) Biliary stent obstruction: Qualifiers: Encounter type: initial encounter Qualified Code(s): T85.590A - Other mechanical complication of bile duct prosthesis, initial encounter Code(s): T85.590A - Other mechanical complication of bile duct prosthesis, initial encounter Status: Acute Assessment and Plan: See above Subjective Date/time seen: 01/23/21 15:02 Patient is 60-year-old female with a past medical history of Cholangiocarcinoma, gall stones, and biliary stent placement who presented to the ED for evaluation of right upper quadrant pain on 01/22/2021. Patient just had a stent placed at [facility] on 01/08/2021, when home had some chicken wings when the pain returned. Concern for the stent to be blocked patient has been accepted by [facility] and is waiting for a bed for transfer. Patient is has no complaints and stated that her pain is better today. Patient stated that she is very hungry and would like something the eat. Patient denies chest pain, shortness of breath, nausea, vomiting, abdominal pain, headache, dizziness, lightheadedness, syncope or falls. I did cause loose who said that the bed situation is little tight still there and they will keep her on the list and get her a bed as soon as possible. I did ask if they thought that the patient could have something small to eat. Awaiting a call back. Will get patient a tray of clear liquids. Review of Systems Review of Systems: All systems reviewed & are unremarkable except as noted in HPI and below Exam Const: General: cooperative, healthy appearing, no acute distress, well developed, alert and awake Nutritional Appearance: well nourished Orientation/consciousness: patient oriented x3 Limitations: no limitations HENMT: Head: normal to inspection Ears: hearing grossly normal bilaterally General nose exam: Normal external nose present Mouth: Yes Normal oral and palatal mucosa present, Yes lip normal and Yes tongue normal Teeth and gingiva: abnormal tooth and associated gingiva and poor dentition Eyes: General: appearance normal, both eyes and all related structures Neck: Neck: normal visual inspection, full ROM, trachea midline and supple Chest: Chest palpation & inspection: normal inspection of the chest Resp: Effort & Inspection: normal respiratory effort and able to speak in complete sentences Auscultation: clear to auscultation bilaterally Cardio: Jugular venous distension: no JVD Rate: regular rate Rhythm: regular rhythm Heart sounds: S1 normal heart sound present and S2 normal heart sound present Peripheral pulses: Peripheral pulses 2+ throughout GI: Inspection: normal to inspection GI Palp: Yes Soft to palpation and No Tenderness to palpation present (GI) Auscultation: normal bowel sounds Skin: General skin exam: normal color, no rashes or lesions noted and jaundice Lesions: no lesions Rashes: no rashes Trauma: no lacerations or abrasions Wounds: no wounds Hair: normal Nails: normal Neuro: General: patient oriented x3, moves all extremities and Normal light touch and pain sensation Speech: normal speech Gait exam (Neuro): Normal gait present Extrem: General: normal to inspection Right upper extremity:
--- NOTE | 2021-01-23 18:32 | PC.NURSE ---
This nurse used the Status cone picker to inform the patient that she is going to transported to [facility] via ambulance soon, and I have assessed her IV site. There appears to be nothing wrong with the IV and it flushes well at this time. This nurse Saline locked the fluids at this time with the patient being transferred, and also asked if there was anything this nurse could do for the patient at this time. Per the cone picker the patient stated she was fine at this time, not currently in any pain and did well with dinner at this time. Dye Line Operator was Regan #[id number]
== END 2021-01-23 19:36 | disposition short-term general hospital (02) ==
LOC: ANHED 01-22 21:51 → ANH2MED 01-23 01:27
PROVIDERS: Admitting Provider Internal Medicine; Emergency Provider Emergency Medicine; Visit Provider Internal Medicine
DX: T85.590A Other mechanical complication of bile duct prosthesis, initial encounter (principal); C22.1 Intrahepatic bile duct carcinoma; R10.11 Right upper quadrant pain; K83.1 Obstruction of bile duct
CPT/HCPCS: 36415; 74177; 80053; 81001; 83690; 85025; 96361; 96365; 96366; 96375; 99285; G0378; G0379; J2270; J2543; J7030; Q9967

== ENCOUNTER 2023-02-12 20:22 | Emergency (ER) | payer OTHER, SELFPAY ==
[2023-02-12] VITALS (11 sets, daily range): BP systolic 167–192; BP diastolic 79–94; PULSE 70–79; RESP 14–20; TEMP 36.7; O2SAT 94–99
--- NOTE | ~2023-02-12 | CT_ITS ---
CT head without contrast Indication: Hypertension, weakness, headache Technique: Serial scans were obtained through the brain without the administration of contrast. Dose reduction technique was used on this scan by utilizing automated exposure control and iterative recon struction technique. The dose-length product (DLP) was 605.33 mGy-cm. Findings: There is no evidence of intracranial hemorrhage, mass lesion, or acute infarct. There is see ggestion of mild dilatation of the ventricular system relative to other subarachnoid spaces. Minimal low-attenuation areas are present in the periventricular white matter bilaterally. There is no eviden ce of edema, mass effect or midline shift. The visualized paranasal sinuses and mastoid air cells a re clear. Impression: Possible mild hydrocephalus versus mild atrophic changes. Correlate clinically. No acute infarct, intracranial hemorrhage, or mass lesion identified. Reviewed, dictated and finalized at [facility]. Impression: Possible mild hydrocephalus versus mild atrophic changes. Correlate clinically. No acute infarct, intracranial hemorrhage, or mass lesion identified.
--- NOTE | 2023-02-12 20:58 | PC.NURSE ---
Pt is Turkish speaking requiring a classifying machine operator. Daughter is at bedside and states she feels comfortable translating for patient.
[2023-02-12 23:30] LABS: Basophils Absolute Auto 0.1 K/mm3 (0.0-0.1); Basophils Percent Auto 0.7 % (0.2-1.2); Eosinophils Absolute Auto 0.1 K/mm3 (0-0.3); Eosinophils Percent Auto 1.9 % (0-4.4); Hematocrit 40.3 % (37.0-47.0); Immature Granulocyte Absolute 0.01 K/mm3 (0.00-0.031); Immature Granulocyte Percent A 0.1 % (0-0.5); Lymphocytes Absolute Auto 2.64 K/mm3 (0.9-3.2); Lymphocytes Percent Auto 36.3 % (18.3-44.2); Mean Corpuscular HGB Conc 32.3 g/dl (32-36); Mean Corpuscular Volume 83.6 fl (80-100); Mean Platelet Volume 11.1 fl (7.4-10.4); Monocytes Absolute Auto 0.5 K/mm3 (0.1-0.6); Neutrophils Absolute Auto 3.9 K/mm3 (1.3-6.7); Platelet Count Result 235 k/mm3 (150-375); Red Blood Count 4.82 M/mm3 (4.2-5.4); White Blood Count 7.3 K/mm3 (4.5-10.0)
[2023-02-12 23:53] LABS: Alanine Aminotransferase 44 U/L (6-35); Albumin Level 4.5 g/dL (3.5-5.1); Alkaline Phosphatase 189 U/L (38-126); Anion Gap 7 mmol/L (8-16); Aspartate Amino Transferase 58 U/L (14-36); Bilirubin,Total 0.9 mg/dL (0.2-1.3); Blood Urea Nitrogen 21 mg/dL (7-17); Calcium 9.2 mg/dL (8.4-10.2); Carbon Dioxide 24 mmol/L (22-30); Chloride 106 mmol/L (98-107); Estimated CRCL calculation 91 ml/min; Estimated Glomerular Filt Rate > 60; Glucose 83 mg/dL (65-110); Potassium 4.3 mmol/L (3.4-5.0); Sodium 137 mmol/L (137-145)
[2023-02-12 23:56] LABS: Troponin I < 0.012 ng/mL (0.000-0.034)
[2023-02-12 23:57] LABS: Prothrombin Time 13.3 Seconds (11.1-14.7)
[2023-02-12 23:58] LABS: Partial Thromboplastin Time 29.2 SECONDS (22.3-36.8)
--- NOTE | 2023-02-13 00:05 | ECG_ITS ---
Measurements Intervals [place] Rate: 69 P: 47 VT: 174 QRS: 22 QRSD: 109 T: 40 QT: 430 QTc: 462 Interpretive Statements SINUS RHYTHM NO PREVIOUS ECG AVAILABLE FOR COMPARISON Electronically Signed On 02-13-2023 13:21:23 CDT by Francia Lazar M.D.
[2023-02-13 00:26] VITALS: PULSE 72; O2SAT 93
[2023-02-13 00:27] VITALS: BP 192/96; PULSE 74; RESP 19; O2SAT 96
[2023-02-13] MEDS: ACETAMINOPHEN 500 MG TABLET 1000 MG PO (00:29)
[2023-02-13 00:30] VITALS: PULSE 75; O2SAT 97
--- NOTE | 2023-02-13 00:54 | ED.RECABL ---
HPI - Recheck/Abnormal Lab/Rx General Chief Complaint: Recheck/Abnormal Lab/Rx <Corina Mac PA-C - Last Filed: 02/13/23 03:44> Stated Complaint: high bp <Corina Mac PA-C - Last Filed: 02/13/23 03:44> Time Seen by Provider: 02/12/23 22:47 <CLAUDY Weller Last Filed: 02/13/23 03:44> Source: patient <CLAUDY Weller Last Filed: 02/13/23 03:44> Mode of arrival: ambulatory <CLAUDY Weller Last Filed: 02/13/23 03:44> Limitations: no limitations and language barrier <CLAUDY Weller Last Filed: 02/13/23 03:44> History of Present Illness HPI narrative: Patient is a 62-year-old female who presents to the ED with report of hypertension. Patient is primarily Nigerien-speaking. Daughter at bedside assisted in providing patient's information. [employer] software engineer intern was offered and refused. Daughter reports patient has had issues with high blood pressure over the last 4 days. She does have remote history of this, but has not been on medication for approximately 2 years. Per records, she has been on amlodipine in the past. Patient has had several office visits with her GI specialist recently and her BP has been noted to be elevated at those office visits. Daughter reports blood pressure has been up to 200s systolic at home. Patient has had intermittent lightheadedness over the last couple of days, feeling slightly weak. She reported having a headache today, which prompted her presentation. Patient did not take anything for the headache. Denies any numbness, weakness, chest pain, difficulty breathing, vision changes, abdominal pain, nausea, vomiting. <CLAUDY Weller Last Filed: 02/13/23 03:44> Related Data Allergies/Adverse Reactions: Allergies Allergy/AdvReac Type Severity Reaction Status Date / Time Penicillins Allergy Hives Verified 02/12/23 20:58 <CLAUDY Weller Last Filed: 02/13/23 03:44> Review of Systems Review of Systems: CONSTITUTIONAL: Denies fever, chills, or sweats. EYES: Denies visual changes. CARDIOVASCULAR: Denies chest pain. RESPIRATORY: Denies dyspnea. GASTROINTESTINAL: Denies abdominal pain, nausea, vomiting. MUSCULOSKELETAL: Denies back pain, joint pain, or myalgia. NEUROLOGIC: See HPI. <Corina Mac PA-C - Last Filed: 02/13/23 03:44> All systems reviewed & are unremarkable except as noted in HPI and below <Corina Mac PA-C - Last Filed: 02/13/23 03:44> [facility] Past Medical History Medical History: Medical History Cholangiocarcinoma Gall stones Obstructive jaundice <Corina Mac PA-C - Last Filed: 02/13/23 03:44> Surgical History Surgical History: Surgical History History of biliary duct stent placement History of ERCP <Corina Mac PA-C - Last Filed: 02/13/23 03:44> Family History Family History: Family History Mother Parkinson disease <Corina Mac PA-C - Last Filed: 02/13/23 03:44> Social History Social History: Social History Smoking status: Never smoker Alcohol intake: never Substance use: never Spiritual care concerns: No <Corina Mac PA-C - Last Filed: 02/13/23 03:44> Exam Narrative: GENERAL: Well appearing, obese with BMI of 30.5, non-toxic, in no acute distress. HEAD: Normocephalic, atraumatic. NECK: Supple. No adenopathy, no masses. RESPIRATORY: Airway patent, respirations nonlabored. Clear to auscultation bilaterally, no rales, rhonchi, wheezing. CARDIOVASCULAR: Regular rate and rhythm without murmurs, rubs, or gallops. Radial pulses 2+ and equal bilaterally. ABDOMINAL: Soft, nontender, nondistended, no hepatosplenomega
[2023-02-13 01:45] VITALS: BP 160/72; PULSE 76; RESP 21; O2SAT 96
[2023-02-13] MEDS: amLODIPine BESYLATE 5 MG TABLET 10 MG PO (02:09)
[2023-02-13 02:11] VITALS: BP 164/80; PULSE 79; RESP 20; O2SAT 99
== END 2023-02-13 02:37 | disposition home or self-care (01) ==
PROVIDERS: Emergency Provider Physician Assistant
DX: I10 Essential (primary) hypertension (principal); R51.9 Headache, unspecified; R42 Dizziness and giddiness; Z85.09 Personal history of malignant neoplasm of other digestive organs
CPT/HCPCS: 36415; 70450; 80053; 84484; 85025; 85610; 85730; 93005; 99284; A9270